=== PATIENT | female | born 1995 | race Caucasian/White ===

== ENCOUNTER 2020-03-02 08:42 | Outpatient (REF) | payer OTHER, SELFPAY ==
[2020-03-02 12:20] LABS: Glucose Fasting 70 mg/dL (60-99)
[2020-03-02 12:26] LABS: Iron 51 mcg/dL (30-160); Percent Iron Saturation 14 % (15-50); Total Iron Binding Capacity 360 mcg/dL (228-428); Unsaturated Iron Binding 309 ug/dL
[2020-03-02 13:23] LABS: Glucose 1 Hour 131 mg/dL
[2020-03-02 16:07] LABS: CT PCR NOT DETECTED (Not Detect.); NG PCR NOT DETECTED (Not Detect.)
[2020-03-03 09:31] LABS: Rubella IgG Antibody 2.34 index
[2020-03-03 13:21] LABS: Varicella IgG Antibody <135.00 index
[2020-03-04 12:26] LABS: HIV RNA PCR Qn Copies <20 NOT DETECTED copies/mL (NOT DETECTED); HIV RNA PCR Qn Log Copies <1.30 NOT DETECTED (NOT DETECTED)
[2020-03-05 08:49] LABS: HBsAGNum1 0.11 S/CO (0.00-0.99); Hepatitis B Surface Antigen Negative (Negative)
[2020-03-05 09:44] LABS: ~HepC Num1 0.07 S/CO (0.00-0.79); ~Hepatitis C Antibody Nonreactive (Nonreactive)
[2020-03-07 05:02] LABS: Syphilis Screen Nonreactive (Nonreactive)
== END 2020-03-02 08:43 | disposition home or self-care (01) ==
LOC: HO.LAB 08:42
PROVIDERS: PCP Internal Medicine; Visit Provider Obstetrics & Gynecology
DX: O99.012 Anemia complicating pregnancy, second trimester (principal); D64.9 Anemia, unspecified; O99.892 Other specified diseases and conditions complicating childbirth; N89.8 Other specified noninflammatory disorders of vagina; O34.219 Maternal care for unspecified type scar from previous cesarean delivery; O99.212 Obesity complicating pregnancy, second trimester; E66.9 Obesity, unspecified; O09.292 Supervision of pregnancy with other poor reproductive or obstetric history, second trimester; Z3A.14 14 weeks gestation of pregnancy
CPT/HCPCS: 82951; 83540; 86762; 86780; 86787; 86803; 86850; 86900; 86901; 87086; 87340; 87491; 87536; 87591

== ENCOUNTER → 2020-04-03 16:00 | Outpatient (BNVA) | payer OTHER, SELFPAY | PROVIDERS: PCP Internal Medicine; Visit Provider Advanced Practice Midwife | DX: Z76.89 Persons encountering health services in other specified circumstances (principal) ==

== ENCOUNTER 2020-04-06 12:22 | Outpatient (REF) | payer OTHER, SELFPAY ==
--- NOTE | 2020-04-06 12:23 | US_ITS ---
EXAMINATION: US OBSTETRICAL CLINICAL INFORMATION: 24-year-old at 18.2 weeks of gestation Suspected anomaly COMPARISON: 02/15/2020 TECHNIQUE: Real-time transabdominal ultrasound was performed using C1-5 megahertz transducer. FINDINGS: A single, active, fetus is seen in vertex presentation. The placenta is posterior without previa, and the amniotic fluid volume is wnl. MEASUREMENTS: 1. Biparietal Diameter: 4.4 cm; 19 point wks 2. Occipital Frontal Diameter: 6.1 cm 3. Head Circumference: 16.8 cm; 19.4 wks 4. Abdominal Circumference: 15.3 cm; 20.4 wks 5. Femur Length: 2.8 cm; 18.4 wks 6. Humerus Length: 2.8 cm; 19.1 wks 7. Tibia Length: 2.4 cm; 18.5 wks 8. Ulna Length: 2. cm; 18.2 wks 9. Lateral ventricle: 0.8 cm 10. Cerebellum: 1.95 cm; 20.0 wks 11. Cisterna Magna: 0.39 cm 12. Nuchal Fold: 10.5 mm 13. Heart Rate: 135 beats per minute Rt ovary: normal Lt ovary: normal Cervical length 4.4 cm on T/A. GESTATIONAL AGE: 1. Established GA: 18.2 wks 2. GA from [facility]: 19.4 wks ESTIMATED DATE OF DELIVERY: 1. Established ANTONIA: 09/05/2020 2. ANTONIA from [facility]: 08/27/2020 ANATOMY: The visualized anatomy includes but not limited to: 1. Cranium: Normal 2. Intracranial anatomy: cavum septum pellucidi, lateral ventricles, choroid plexus, cerebellum, posterior fossa, third and fourth ventricles. 3. Cystic hygroma is noted. Nuchal fold measured approximately 10.55 mm. There are no septations. However the integument edema extends down to the thoracic and abdominal area. Bilateral pleural effusion is noted. No mass in the thoracic cavity. 4. face: orbits, lip/palate, profile, nasal bone 5. Heart: four-chamber view of the heart, ventricular septum, foramen ovale, pulmonary vein, left and right outflow tracts, three-vessel view, 3 vessel trachea view, aortic and ductal arches, situs.. There is no evidence of a pericardial effusion. 6. Diaphragm: Normal: Bilateral pleural effusion 7. Abdominal wall: Normal umbilical cord insertion. No ascites 8. Cord Insertion: Normal 9. Spine: Cervical, thoracic, lumbar, sacral. 10. Stomach: Normal size and shape 11. Right Kidney: Normal 12. Left Kidney: Normal 13. 3 vessel cord: Normal 14. Upper extremity: Open hands, fifth digit. 15. Lower extremity: Tibia, fibula, bilateral feet. 16. Bladder: Normal 17. Genitalia: Female, patient aware US/US OB /maternal detail IMPRESSION: 1. Single, living, intrauterine with appropriate biometry. 2. Lymphangiectasia : Diffuse skin swelling involving nuchal area, neck, extending to thoracic wall. Bilateral pleural effusion without ascites. No pericardial effusion. Normal cardiac anatomy. 3. AFV: wnl DISCUSSION: I reviewed today's ultrasound findings. The prognosis for fetus with lymphangiectasia is highly variable. She had low-risk N IPT. I discussed the fact that the prognosis can vary depending on the etiology. Aneuploidy and other than trisomies as well as rare genetic syndrome can be associated with lymphangiectasia. She will be referred to the [facility] for MFM/genetic consultation, amniocentesis as well as echo. I also informed her that all options retroplacental approximately 24 weeks of gestation. She was informed that the baseline incidence of congenital abnormalities is approximately 3-5%. Not all these conditions are diagnosable in utero. RECOMMENDATIONS: 1. No further follow-up is been scheduled. Thank you for allowing me to participate in her care. Visiting time 40 minutes. Majority of this visit was spent reviewing and discussing her care.
== END 2020-04-06 12:23 | disposition home or self-care (01) ==
LOC: HO.US 12:22
PROVIDERS: Visit Provider Obstetrics & Gynecology
DX: O35.9XX0 Maternal care for (suspected) fetal abnormality and damage, unspecified, not applicable or unspecified (principal); R93.89 Abnormal findings on diagnostic imaging of other specified body structures; Z3A.26 26 weeks gestation of pregnancy
CPT/HCPCS: 76811; 99212

== ENCOUNTER → 2020-04-30 11:17 | Outpatient (BNVA) | payer OTHER, SELFPAY | PROVIDERS: PCP Internal Medicine; Visit Provider Advanced Practice Midwife | DX: Z76.89 Persons encountering health services in other specified circumstances (principal) ==

== ENCOUNTER → 2020-05-28 15:26 | Outpatient (BNVA) | payer OTHER, SELFPAY | PROVIDERS: PCP Internal Medicine; Visit Provider Obstetrics & Gynecology | DX: Z39.2 Encounter for routine postpartum follow-up (principal) | CPT/HCPCS: 99212 ==

== ENCOUNTER 2020-10-15 23:14 | Emergency (ER) | payer OTHER, SELFPAY ==
[2020-10-15 23:24] VITALS: BP 105/65; PULSE 71; RESP 18; TEMP 36.8; O2SAT 100; BMI 32.3
--- NOTE | 2020-10-16 00:17 | PC.NURSE ---
patient states that she is stressed out lately and believe she is suffering from anxiety. Patient states that she has some chest pain which resolved but has left sided numbness
[2020-10-16] MEDS: LORazepam 0.5 MG TABLET PO (00:27)
--- NOTE | 2020-10-16 00:29 | ED.GENADULT ---
HPI - General Adult General Chief complaint: General Medical Stated complaint: Facial numbness Time Seen by Provider: 10/16/20 00:03 Source: patient Mode of arrival: ambulatory Limitations: no limitations History of Present Illness HPI narrative: Patient history of anxiety been feeling anxiety stressed out lately some noticed sharp pain in the chest with facial numbness which is gone at this time no chest pain no shortness of breath no palpitation. No prior history of any chest pain or shortness of breath no murmur Related Data Home Medications Medication Instructions Recorded Confirmed prenat.vits,jossy,[id number]-[id number] 1 tab PO DAILY 04/30/20 Previous Rx's Medication Instructions Recorded docusate sodium 100 mg capsule 100 mg PO BID PRN #60 cap 03/02/20 ferrous sulfate 325 mg (65 mg 325 mg PO DAILY #90 tab 03/02/20 iron) tablet lorazepam [Ativan] 1 mg PO BEDTIME PRN #14 tab 10/16/20 Allergies Allergy/AdvReac Type Severity Reaction Status Date / Time No Known Allergies Allergy Verified 05/28/20 15:33 Review of Systems Review of Systems: Constitutional : No Weight loss, No Fever, No Chills ENT/Mouth : No sore throat, No Rhinorrhea Eyes: No Eye Pain, No Swelling Cardiovascular : No Chest Pain, no palpitations Respiratory : No Cough, No Sputum, no shortness of breath Gastrointestinal : no Nausea, No Vomiting, No Diarrhea, No abdominal Pain, no black stools Genitourinary : No Dysuria, No Urinary Frequency Musculoskeletal : No joint pain, No Myalgias, No Joint Swelling Skin : No Skin Lesions, No rash Neuro : No Weakness, No Numbness, No Dizziness, No Headache Psych :+ Anxiety/Panic, No Depression Heme/Lymph: No Bruising, No Lymphadenopathy Endocrine : No Polyuria, No Polydipsia All other systems reviewed and are negative PMF Past Medical History Medical History Anemia affecting History of gestational diabetes Multigravida in second trimester Surgical History History of delivery affecting Family History Family History Maternal Grandmother Breast cancer Social History Social History Alcohol intake: never Smoking Status: Never smoker Use of substances other than those prescribed or required for medical reasons: No Advance Directives: No Advance Directives Information Provided: No Patient : No Sexual orientation: Straight/Heterosexual Gender identity: female Physical Exam Vital Signs: Vital Signs: Last Vital Signs Temp 98.3 F 10/15/20 23:24 Pulse 71 10/15/20 23:24 Resp 18 10/15/20 23:24 BP 105/65 10/15/20 23:24 Pulse Ox 100 10/15/20 23:24 Body Mass Index 32.3 Appearance: Alert. Oriented X3. No acute distress. Anxious Eyes: PERRLA, No Nystagmus ENT: Pharynx normal. Oral Mucosa moist Neck: Normal inspection. Neck supple. CVS: Normal heart rate and rhythm. Pulses normal. No murmur or gallop Respiratory: No respiratory distress. Equal air entry bilateral, no wheezing/rales/rhonchi Abdomen: Soft and nontender. Bowel sounds are present, no mass palpable, no CVA tenderness Skin: Skin warm and dry. Normal skin color. Normal skin turgor. Extremities: No lower extremity edema. No calf tenderness Neuro: Oriented X 3. No motor deficit. No sensory deficit.No cerebellar signs , cranial nerves II-XII intact Medical Decision Making MDM Narrative Medical decision making narrative: Patient with anxiety vital stable low risk for any coronary artery disease will discharge patient home on Ativan Discharge Plan Discharge Clinical Impression: Anxiety Patient Disposition: Home, Self-Care Instructions: Anxiety (ED) Additional Instructions: Take medication for severe anxiety as advised. Follow with PCP Prescriptions: New lorazepam [Ativan] 1 mg tablet 1 mg PO BEDTIME PRN (Reason: anxiety) Qty: 14 RF: 0 No Action ferrous sulfate 325 mg (65 mg iron) tablet 325 mg PO DAILY Qty: 90 RF: 3 docusate sodium [Colace] 100 mg capsule 100 mg PO BID PRN (Reason: constipation) Qty: 60 RF: 11 prenat.vits,jossy,[id number] Tablet 1 tab PO DAILY RF: 0
== END 2020-10-16 01:00 | disposition home or self-care (01) ==
PROVIDERS: Emergency Provider Internal Medicine; PCP Internal Medicine
DX: F41.9 Anxiety disorder, unspecified (principal); Z79.899 Other long term (current) drug therapy; Z72.89 Other problems related to lifestyle; Z73.3 Stress, not elsewhere classified
CPT/HCPCS: 99283; 99284

== ENCOUNTER 2020-11-19 09:51 | Outpatient (REF) | payer OTHER, SELFPAY ==
[2020-11-19 15:00] LABS: HCG Quantitative 18306 mIU/mL
== END 2020-11-19 09:52 | disposition home or self-care (01) ==
LOC: HO.LAB 09:51
PROVIDERS: PCP Internal Medicine; Visit Provider Advanced Practice Midwife
DX: O09.299 Supervision of pregnancy with other poor reproductive or obstetric history, unspecified trimester (principal)
CPT/HCPCS: 36415; 81025; 84702; 99212

== ENCOUNTER 2020-11-23 09:20 | Outpatient (REF) | payer OTHER, SELFPAY ==
--- NOTE | ~2020-11-23 | US_ITS ---
EXAMINATION: OBSTETRICAL ULTRASOUND, FIRST TRIMESTER HISTORY: 21-year-old at approximately 6 weeks of gestation History of poor OB outcome LMP: 10/06/2020 COMPARISON: None TECHNIQUE: Real time transabdominal imaging with color and M-mode Doppler. FINDINGS: A single, live IUP CRL of 7.0 mm c/w 6.5wks is noted. Heart Rate: 127 beats per minute. Both maternal ovaries are seen and appear normal. GESTATIONAL AGE: 1. GA from [facility]: 6.6 wks 2. GA from [facility]: 6.5 wks ESTIMATED DATE OF DELIVERY: 1. ANTONIA from [facility]: 07/13/2021 2. ANTONIA from [facility]: 07/14/2021 US/US OB <= 14 weeks fetus IMPRESSION: 1. A single live IUP 2. Size equals dates 3. Normal ovaries Most recent was complicated by large cystic hygroma/lymphangiectasia diagnosed at the time of the survey. A follow up at approximately 12 weeks is recommended. Thank you very much for this referral. This note was generated with a voice recognition program. Please excuse any errors which may have been overlooked during my review of this note. Sometimes these errors may affect the content or meaning of a given sentence.
== END 2020-11-23 09:21 | disposition home or self-care (01) ==
LOC: HO.US 09:20
PROVIDERS: Visit Provider Advanced Practice Midwife
DX: O09.299 Supervision of pregnancy with other poor reproductive or obstetric history, unspecified trimester (principal); Z3A.01 Less than 8 weeks gestation of pregnancy
CPT/HCPCS: 76801

== ENCOUNTER 2020-12-03 09:58 | Outpatient (REF) | payer OTHER, SELFPAY ==
[2020-12-03 13:00] LABS: Hemoglobin 9.5 g/dl (12.0-16.0); Mean Corpuscular HGB Conc 31.7 g/dl (31.0-35.0); Mean Corpuscular Hemoglobin 25.5 pg (27.0-33.0); Mean Corpuscular Volume 80.4 fL (80-98); Mean Platelet Volume 11.8 fL (9.4-12.3); Platelet Count 255 X10*3/uL (160-400); Red Blood Count 3.73 X10*6/uL (4.20-5.50); Red Cell Distribution Width 15.6 % (11.0-16.0); White Blood Count 9.2 X10*3/uL (4.8-10.8)
[2020-12-03 13:21] LABS: Glucose 1 Hour PP 50gm Dose 145 mg/dL (60-140)
[2020-12-03 15:00] LABS: Syphilis Screen Nonreactive (Nonreactive)
[2020-12-03 15:13] LABS: Amphetamine Screen Urine Not Detected (Not Detect); Barbiturates, Urine Not Detected (Not Detect); Benzodiazepines Screen Urine Not Detected (Not Detect); Cannabinoid Screen Urine Not Detected (Not Detect); Cocaine Screen Urine Not Detected (Not Detect); Opiate Screen Urine Not Detected (Not Detect); Phencyclidine Screen Urine Not Detected (Not Detect)
[2020-12-04 04:38] LABS: HIV AB/AG Nonreactive (Nonreactive)
[2020-12-04 04:47] LABS: HBsAGNum1 0.21 S/CO (0.00-0.99); Hepatitis B Surface Antigen Negative (Negative); ~HepC Num1 0.05 S/CO (0.00-0.79); ~Hepatitis C Antibody Nonreactive (Nonreactive)
[2020-12-05 17:46] LABS: Rubella IgG Antibody 2.22 Index
== END 2020-12-03 09:59 | disposition home or self-care (01) ==
LOC: HO.LAB 09:58
PROVIDERS: PCP Internal Medicine; Visit Provider Advanced Practice Midwife
DX: R73.09 Other abnormal glucose (principal); Z11.3 Encounter for screening for infections with a predominantly sexual mode of transmission; Z86.32 Personal history of gestational diabetes
CPT/HCPCS: 80307; 85027; 86762; 86780; 86787; 86803; 86850; 86900; 86901; 87086; 87340; 87389

== ENCOUNTER 2021-01-01 15:02 | Outpatient (REF) | payer OTHER, SELFPAY ==
[2021-01-02 10:15] LABS: CT PCR NOT DETECTED (Not Detect.); NG PCR NOT DETECTED (Not Detect.)
[2021-01-02 11:16] LABS: BV Int Neg Control Negative (Negative); BV Int Pos Control Positive (Positive)
== END 2021-01-01 15:03 | disposition home or self-care (01) ==
LOC: HO.LAB 15:02
PROVIDERS: PCP Internal Medicine; Visit Provider Advanced Practice Midwife
DX: O09.291 Supervision of pregnancy with other poor reproductive or obstetric history, first trimester (principal); O34.211 Maternal care for low transverse scar from previous cesarean delivery; Z86.32 Personal history of gestational diabetes; Z20.2 Contact with and (suspected) exposure to infections with a predominantly sexual mode of transmission
CPT/HCPCS: 87480; 87491; 87510; 87591; 87660; 88142; 99212

== ENCOUNTER 2021-01-04 12:38 | Outpatient (REF) | payer OTHER, SELFPAY ==
--- NOTE | ~2021-01-04 | US_ITS ---
EXAMINATION: OBSTETRICAL ULTRASOUND, FIRST TRIMESTER HISTORY: 25-year-old at 12.6 weeks of gestation History of poor obstetrical outcome NT screening COMPARISON: November 23, 2020 TECHNIQUE: Real time transabdominal imaging with color and M-mode Doppler. FINDINGS: A single, live IUP CRL of 72.1 mm c/w 13.3wks is noted. Heart Rate: 156 beats per minute. Normal yolk sac seen. NT was 1.3.mm. NB Present The embryo appears sonographically wnl for this GA. Both maternal ovaries are seen and appear normal. GESTATIONAL AGE: 1. Established GA: 12.6 wks 2. GA from [facility]: 13.3 wks ESTIMATED DATE OF DELIVERY: 1. Established ANTONIA: 07/13/2021 2. ANTONIA from [facility]: 07/09/2021 US/US OB 1T nuc measure IMPRESSION: 1. A single live IUP 2. Size equals dates 3. NT of 1.3 mm 4. No evidence of cystic hygroma MFM Consultation: I reviewed the ultrasound findings along with significance of NT measurement. The NT of less than 3mm is generally reassuring. However, the sensitivity for T21 detection is only 60%. I reviewed the availability of serum aneuploidy screening which includes cell-free DNA and placental protein based tests. I discussed the sensitivity, false-positive rate, and other limitations associated with each test. I also reviewed the availability of invasive diagnostic tests that are associated small but definite risk of miscarriage. We also reviewed the differences between screening tests and diagnostic tests. After our discussion, she opted for the First trimester screening that is based on cell-free DNA or non-invasive testing (NIPT). In March 2020, she had a second trimester demise. 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 The cytogenetics report is not available for my inspection today. The survey in that showed diffuse lymphangiectasia. N IPT was low risk. I informed the patient that the likelihood of recurrence is low given that the fetus was not affected by aneuploidy. However it is possible that one of them might be a carrier of a balanced translocation. The instance of the balance translocation in the general population is approximately 1%. Although parental karyotype could be informative, it may not provide clinically useful information for the management of this . A follow up at 18 weeks for survey has been scheduled. The result of the N IPT will be available in approximately one week. Thank you very much for this referral. Total time 30 minutes. The time spent was devoted to counseling the patient about the disease and diagnosis, coordinating care including reviewing her records, pertinent lab data and studies, as well as discussing diagnostic evaluation and workup, plan therapeutic interventions and future disposition of care. This includes any additional research needed to obtain further information in formulating the plan of care of this patient. This note was generated with a voice recognition program. Please excuse any errors which may have been overlooked during my review of this note. Sometimes these errors may affect the content or meaning of a given sentence.
== END 2021-01-04 12:39 | disposition home or self-care (01) ==
LOC: HO.US 12:38
PROVIDERS: PCP Internal Medicine; Visit Provider Advanced Practice Midwife
DX: O09.291 Supervision of pregnancy with other poor reproductive or obstetric history, first trimester (principal); Z3A.12 12 weeks gestation of pregnancy
CPT/HCPCS: 76813

== ENCOUNTER 2021-01-21 10:38 | Outpatient (REF) | payer OTHER, SELFPAY | END 2021-01-21 10:39 | disposition home or self-care (01) | LOC: HO.LAB 10:38 | PROVIDERS: Visit Provider Advanced Practice Midwife | DX: O09.292 Supervision of pregnancy with other poor reproductive or obstetric history, second trimester (principal); O26.892 Other specified pregnancy related conditions, second trimester; R30.0 Dysuria; R73.09 Other abnormal glucose; Z3A.15 15 weeks gestation of pregnancy; Z86.32 Personal history of gestational diabetes | CPT/HCPCS: 81003; 99212 ==

== ENCOUNTER 2021-01-25 10:36 | Outpatient (REF) | payer OTHER, SELFPAY ==
--- NOTE | ~2021-01-25 | US_ITS ---
EXAMINATION: OBSTETRICAL ULTRASOUND, Follow up HISTORY: 25-year-old at the 15.5 weeks of gestation History of poor obstetrical outcome COMPARISON: 01/04/2021 TECHNIQUE: Real time transabdominal imaging with color and M-mode Doppler. PRESENTATION: Breech PLACENTA LOCATION: Anterior without previa AMNIOTIC FLUID: Normal MEASUREMENTS: 1. Biparietal Diameter: 3.7 cm; 17.3 wks 2. Head Circumference: 13.3 cm; 17.0 wks 3. Abdominal Circumference: 10.5 cm; 16.3 wks 4. Femur Length: 2.0 cm; 16.1 wks 5. Heart Rate: 146 beats per minute WEIGHT: Estimated weight is 153 grams (0 lbs 5 oz) -- 73 %. survey was not attempted due to early gestational age. No abnormalities were seen in visualized anatomy. GESTATIONAL AGE: 1. Established GA: 15.6 wks 2. GA from [facility]: 16.6 wks ESTIMATED DATE OF DELIVERY: 1. Established ANTONIA: 07/13/2021 2. ANTONIA from [facility]: 07/06/2021 US/ OB /maternal detail IMPRESSION: 1. A single fetus with appropriate biometry is noted. 2. Due to early GA, survey was not attempted. 3. Normal amniotic fluid volume I reviewed today's findings and gave her reassurance. She had a demise diagnosed at approximately 18 weeks of gestation. The cause is unknown. Given today's findings, I reassured her that the likelihood of recurrence is no greater than that of the general population. RECOMMENDATIONS: 1. Follow-up in 4 weeks for survey (scheduled). Thank you very much for this referral. Total time 20 minutes. The time spent was devoted to counseling the patient about the disease and diagnosis, coordinating care including reviewing her records, pertinent lab data and studies, as well as discussing diagnostic evaluation and workup, plan therapeutic interventions and future disposition of care. This includes any additional research needed to obtain further information in formulating the plan of care of this patient. This note was generated with a voice recognition program. Please excuse any errors which may have been overlooked during my review of this note. Sometimes these errors may affect the content or meaning of a given sentence.
== END 2021-01-25 10:37 | disposition home or self-care (01) ==
LOC: HO.US 10:36
PROVIDERS: PCP Internal Medicine; Visit Provider Advanced Practice Midwife
DX: O09.299 Supervision of pregnancy with other poor reproductive or obstetric history, unspecified trimester (principal); O99.810 Abnormal glucose complicating pregnancy
CPT/HCPCS: 76811

== ENCOUNTER 2021-02-06 07:52 | Emergency (ER) | payer OTHER, SELFPAY ==
[2021-02-06 08:15] VITALS: BP 119/72; PULSE 95; RESP 16; O2SAT 99; BMI 32.3
--- NOTE | 2021-02-06 08:28 | ED_ITS ---
HPI - General Adult General Stated complaint: wants ultrasound Time Seen by Provider: 02/06/21 08:19 Source: patient Mode of arrival: ambulatory Limitations: no limitations History of Present Illness HPI narrative: LMP in September here no OB complaints she just came to the department to hear her baby's heart beat. She plans to see [facility] for her OBGYN care and is on vitamins, she has no actual complaints other than wanting to hear the heart beat MD complaint: wants to hear her baby's heart beat Onset (ago): hour(s) Severity: mild Relieving factors: none Exacerbating factors: none Associated symptoms: denies other symptoms Treatments prior to arrival: none Related Data Previous Rx's Medication Instructions Recorded vitamin with calcium 1 tab PO DAILY #90 tab 11/19/20 no.72-iron 27 mg-folic acid 1 mg tablet ( Vitamins Plus Low Iron) ferrous sulfate 324 mg (65 mg 324 mg PO TID #90 tab 12/03/20 iron) tablet,delayed release metronidazole 500 mg tablet 500 mg PO Q12H #14 tab 01/02/21 (Flagyl) Allergies Allergy/AdvReac Type Severity Reaction Status Date / Time No Known Allergies Allergy Verified 01/21/21 10:55 Review of Systems Review of Systems: Constitutional : No Fever, No Chills ENT/Mouth : No sore throat, No Rhinorrhea Eyes: No Eye Pain, No Swelling, No Redness Cardiovascular : No Chest Pain, No SOB Respiratory : No Cough, No Sputum, No Wheezing Gastrointestinal : No Nausea, No Vomiting, No abdominal Pain Genitourinary : No Dysuria, No Urinary Frequency, No Hematuria, no bleeding Musculoskeletal : No joint pain, No Myalgias, No Joint Swelling PMFSH Past Medical History Attestation statement: The following information was validated with the patient. Medical History Anemia affecting Anxiety History of gestational diabetes Multigravida in second trimester Surgical History History of delivery affecting Family History Family History Maternal Grandmother No problems noted. Mother Diabetes Social History Social History Household Members: Significant Other and Children Housing: Apartment Are you a primary manager medicare to a significant other at home: No Do you presently have visiting nurse or other home services: No Alcohol intake: former Patient Tobacco Use Status: Never used Tobacco Second Hand Smoke Exposure: No Special sonny needs: No Agree to transfusion: Yes Advance Directives: No Advance Directives Information Provided: No Patient : Yes Sexual orientation: Straight/Heterosexual Gender identity: Female Physical Exam Vital Signs: Vital Signs: Last Vital Signs Pulse 95 02/06/21 08:15 Resp 16 02/06/21 08:15 BP 119/72 02/06/21 08:15 Pulse Ox 99 02/06/21 08:15 Body Mass Index 32.3 Appearance: Alert. Oriented X3. No acute distress. Eyes: Pupils equal, round and reactive to light. ENT: Pharynx normal. Neck: Normal inspection. Neck supple. CVS: Normal heart rate and rhythm. Pulses normal. Respiratory: No respiratory distress. Breath sounds normal. Abdomen: Soft and non-tender. Skin: Skin warm and dry. Normal skin color. Normal skin turgor. Extremities: No lower extremity edema. Neuro: Oriented X 3. No motor deficit. No sensory deficit. Procedures Procedure Narrative Procedure Narrative: FHT 145 bedside limited trans abd + single IUP movement and activity noted, no free fluid Discharge Plan Discharge Clinical Impression: Patient Disposition: Home, Self-Care Instructions: (ED) Additional Instructions: return to ED for any worsening symptoms or concerns PLEASE CALL YOUR OBGYN TODAY TAKE VITAMINS Prescriptions: No Action ferrous sulfate 324 mg (65 mg iron) tablet,delayed release (DR/EC) 324 mg PO TID Qty: 90 RF: 3 metronidazole [Flagyl] 500 mg tablet 500 mg PO Q12H Qty: 14 RF: 0 Vitamin Plus Low Iron 27 mg iron- 1 mg tablet 1 tab PO DAILY Qty: 90 RF: 3 Referrals: Avel Ghosh MD [Physician] - 2 days
== END 2021-02-06 08:36 | disposition home or self-care (01) ==
PROVIDERS: Emergency Provider Emergency Medicine; PCP Internal Medicine
DX: O26.91 Pregnancy related conditions, unspecified, first trimester (principal); Z3A.00 Weeks of gestation of pregnancy not specified
CPT/HCPCS: 99282; 99283

== ENCOUNTER 2021-02-22 09:30 | Outpatient (REF) | payer OTHER, SELFPAY ==
--- NOTE | ~2021-02-22 | US_ITS ---
EXAMINATION: US OBSTETRICAL CLINICAL INFORMATION: A 25-year-old at 19.6 weeks of gestation Suspected anomaly History of poor OB outcome COMPARISON: 01/25/2021 TECHNIQUE: Real-time transabdominal ultrasound was performed using C1-5 megahertz transducer. FINDINGS: A single, active, fetus is seen in transverse presentation. The placenta is anterior without previa, and the amniotic fluid volume is wnl. MEASUREMENTS: 1. Biparietal Diameter: 4.9 cm; 20.6 wks 2. Occipital Frontal Diameter: 6.3 cm 3. Head Circumference: 18.4 cm; 20.6 wks 4. Abdominal Circumference: 16.4 cm; 21.4 wks 5. Femur Length: 3.6 cm; 21.3 wks 6. Humerus Length: 3.6 cm; 22.4 wks 7. Tibia Length: 3.14 cm; 21.5 wks 8. Ulna Length: 2.9 cm; 20.6 wks 9. Lateral ventricle: 0.7 cm 10. Cerebellum: 2.1 cm; 21.1 wks 11. Cisterna Magna: 0.55 cm 12. Nuchal Fold: 5.28 mm 13. Heart Rate: 160 beats per minute Rt ovary: Unable to visualize Lt ovary: Unable to visualize Cervical length 4.9 cm on T/A. GESTATIONAL AGE: 1. Established GA: 19.6 wks 2[address] GA from [facility]: 21.2 wks ESTIMATED DATE OF DELIVERY: 1. Established ANTONIA: 07/13/[address]21 [address] ANTONIA [address] [facility]: 07/03/2021 ANATOMY: The visualized anatomy includes but not limited to: 1. Cranium: Normal 2. Intracranial anatomy: cavum septum pellucidi, lateral ventricles, choroid plexus, cerebellum, posterior fossa, third and fourth ventricles. 3. face: orbits, lip/palate, profile, nasal bone 4. Heart: four-chamber view of the heart, ventricular septum, foramen ovale, pulmonary vein, left and right outflow tracts, three-vessel view, 3 vessel trachea view, aortic and ductal arches, situs.. 5. Diaphragm: Normal 6. Abdominal wall: Normal 7. Cord Insertion: Normal 8. Spine: Cervical, thoracic, lumbar, sacral. 9. Stomach: Normal size and shape 10. Right Kidney: Normal 11. Left Kidney: Normal 12. 3 vessel cord: Normal 13. Upper extremity: Open hands, fifth digit. 14. Lower extremity: Tibia, fibula, bilateral feet. 15. Bladder: Normal 16. Genitalia: Male, patient aware US/US OB /maternal detail IMPRESSION: 1. Single, living, intrauterine with appropriate biometry. 2. Normal survey DISCUSSION: I reviewed today's ultrasound findings. We discussed the limitations of ultrasound in diagnosing aneuploidy and other congenital abnormalities. I reviewed the differences between screening test and diagnostic test. Amniocentesis was discussed and declined. She was informed that the baseline incidence of congenital abnormalities is approximately 3-5%. Not all these conditions are diagnosable in utero. RECOMMENDATIONS: 1. Follow-up when necessary Thank you for allowing me to participate in her care. Total time 30 minutes. The time spent was devoted to counseling the patient about the disease and diagnosis, coordinating care including reviewing her records, pertinent lab data and studies, as well as discussing diagnostic evaluation and workup, plan therapeutic interventions and future disposition of care. This includes any additional research needed to obtain further information in formulating the plan of care of this patient. This note was generated with a voice recognition program. Please excuse any errors which may have been overlooked during my review of this note. Sometimes these errors may affect the content or meaning of a given sentence.
== END 2021-02-22 09:31 | disposition home or self-care (01) ==
LOC: HO.US 09:30
PROVIDERS: PCP Internal Medicine; Visit Provider Advanced Practice Midwife
DX: Z36.3 Encounter for antenatal screening for malformations (principal); O09.299 Supervision of pregnancy with other poor reproductive or obstetric history, unspecified trimester; Z3A.00 Weeks of gestation of pregnancy not specified
CPT/HCPCS: 76811

== ENCOUNTER → 2021-05-03 11:48 | Outpatient (BNVA) | payer OTHER, SELFPAY | PROVIDERS: PCP Internal Medicine; Visit Provider Advanced Practice Midwife | DX: O36.63X0 Maternal care for excessive fetal growth, third trimester, not applicable or unspecified (principal); Z3A.29 29 weeks gestation of pregnancy | CPT/HCPCS: 99212 ==

== ENCOUNTER 2021-05-10 09:34 | Outpatient (REF) | payer OTHER, SELFPAY ==
--- NOTE | ~2021-05-10 | US_ITS ---
EXAMINATION: OBSTETRICAL ULTRASOUND, Follow up HISTORY: 25-year-old at the 30.6 weeks of gestation Size date discrepancy History of poor OB outcome COMPARISON: 02/22/2021 TECHNIQUE: Real time transabdominal imaging with color and M-mode Doppler. PRESENTATION: Breech PLACENTA LOCATION: Anterior without previa AMNIOTIC FLUID: AMY 12.1 MEASUREMENTS: 1. Biparietal Diameter: 8.1 cm; 32.5 wks 2. Head Circumference: 30.6 cm; 34.1 wks 3. Abdominal Circumference: 29.8 cm; 23.6 wks 4. Femur Length: 5.8 cm; 30.3 wks 5. Heart Rate: 1 4 3 beats per minute WEIGHT: EFW: 2109 grams (4 lbs 10 oz) -- 96 %. BIOPHYSICAL PROFILE: Motion: 2 Tone: 2 Breathin Amniotic Fluid: 2 Total score: 8/8 GESTATIONAL AGE: 1. Established GA: 30.6 wks 2. GA from [facility]: 33.0 wks ESTIMATED DATE OF DELIVERY: 1. Established ANTONIA: 07/13/2021 2. ANTONIA from [facility]: 06/28/2021 US/ OB follow up IMPRESSION: 1. A single active fetus is seen in breech presentation 2. Size greater than dates, EFW corresponds to 96th percentile 3. Reassuring biophysical profile She has gestational diabetes and is currently monitoring her fingerstick glucose values. She reports that her glycemic control is borderline. She will most likely need either oral entirely hypoglycemics or insulin. She will continue her OB care at the [facility]. I informed the patient that the EFW corresponds to the 96th percentile. However this does not the predict macrosomia at term. Unless the EFW at term is 4500 g or more, an elective delivery to prevent permanent Erb's palsy is not the recommended. Thank you very much for this referral. Total time 30 minutes. The time spent was devoted to counseling the patient about the disease and diagnosis, coordinating care including reviewing her records, pertinent lab data and studies, as well as discussing diagnostic evaluation and workup, plan therapeutic interventions and future disposition of care. This includes any additional research needed to obtain further information in formulating the plan of care of this patient. This note was generated with a voice recognition program. Please excuse any errors which may have been overlooked during my review of this note. Sometimes these errors may affect the content or meaning of a given sentence.
== END 2021-05-10 09:35 | disposition home or self-care (01) ==
LOC: HO.US 09:34
PROVIDERS: PCP Internal Medicine; Visit Provider Advanced Practice Midwife
DX: O36.63X0 Maternal care for excessive fetal growth, third trimester, not applicable or unspecified (principal); Z3A.30 30 weeks gestation of pregnancy
CPT/HCPCS: 76816

== ENCOUNTER 2021-05-21 09:18 | Outpatient (REF) | payer OTHER, SELFPAY ==
--- NOTE | ~2021-05-21 | US_ITS ---
EXAMINATION: US OBSTETRICAL (BIOPHYSICAL PROFILE) CLINICAL INFORMATION: Gestational diabetes. . COMPARISON: Obstetrical ultrasound 05/10/2021 TECHNIQUE: Ultrasound of the pelvis is performed. Biophysical profile is performed over 30 minutes with assessment of breathing, gross body movement, tone, and qualitative amniotic fluid volume. Each matrix is scored 0 or 2, depending if the metric is present. Maximum total score possible is 8. Examination is not intended to assess for anomalies. FINDINGS: POSITION: Cephalic presentation. PLACENTA: Anterior. Grade 2. AMNIOTIC FLUID INDEX: 16.97 cm largest pocket measures 9.53 cm CARDIAC ACTIVITY: 125 beats per minute BIOPHYSICAL PROFILE: Motion: 2 Tone: 2 Breathin Amniotic Fluid: 2 Total score: 6 US/US OB biophysical profile IMPRESSION: 1. Single intrauterine gestation in cephalic position with anterior placenta. 2. Total biophysical score is 6 (scale 0-8). 3. Amniotic fluid index 16.97 cm. 4. cardiac activity 125 beats per minute.
[2021-05-21 10:08] LABS: Hematocrit 29.8 % (37.0-47.0); Hemoglobin 9.3 g/dl (12.0-16.0); Mean Corpuscular HGB Conc 31.2 g/dl (31.0-35.0); Mean Corpuscular Hemoglobin 26.5 pg (27.0-33.0); Mean Corpuscular Volume 84.9 fL (80.0-98.0); Mean Platelet Volume 10.9 fL (9.4-12.3); Platelet Count 193 X10*3/uL (160-400); Red Blood Count 3.51 X10*6/uL (4.20-5.50); Red Cell Distribution Width 15.2 % (11.0-16.0); White Blood Count 9.6 X10*3/uL (4.8-10.8)
[2021-05-21 10:36] LABS: Glucose Fasting 109 mg/dL (60-99)
[2021-05-21 11:56] LABS: Glucose 1 Hour 232 mg/dL
[2021-05-21 12:41] LABS: Amphetamine Screen Urine Not Detected (Not Detect); Barbiturates, Urine Not Detected (Not Detect); Benzodiazepines Screen Urine Not Detected (Not Detect); Cannabinoid Screen Urine Not Detected (Not Detect); Cocaine Screen Urine Not Detected (Not Detect); Fentanyl, urine Not Detected (Not Detect); Opiate Screen Urine Not Detected (Not Detect); Phencyclidine Screen Urine Not Detected (Not Detect)
[2021-05-21 12:59] LABS: Glucose 2 Hour 197 mg/dL
[2021-05-21 13:31] LABS: Glucose 3 Hour 181 mg/dL
[2021-05-22 07:55] LABS: Syphilis Screen Nonreactive (Nonreactive)
== END 2021-05-21 09:19 | disposition home or self-care (01) ==
LOC: HO.LAB 09:18
PROVIDERS: Advanced Practice Midwife; PCP Internal Medicine; Visit Provider Advanced Practice Midwife
DX: O09.299 Supervision of pregnancy with other poor reproductive or obstetric history, unspecified trimester (principal); D18.1 Lymphangioma, any site; O09.33 Supervision of pregnancy with insufficient antenatal care, third trimester; O24.419 Gestational diabetes mellitus in pregnancy, unspecified control; O26.899 Other specified pregnancy related conditions, unspecified trimester; R30.0 Dysuria; O99.013 Anemia complicating pregnancy, third trimester; D64.9 Anemia, unspecified; O34.219 Maternal care for unspecified type scar from previous cesarean delivery; Z3A.32 32 weeks gestation of pregnancy
CPT/HCPCS: 36415; 59025; 76819; 80307; 82951; 85027; 86780; 87086; 99212

== ENCOUNTER 2021-05-23 14:26 | Outpatient (REF) | payer OTHER, SELFPAY ==
--- NOTE | ~2021-05-23 | US_ITS ---
EXAMINATION: US OBSTETRICAL (BIOPHYSICAL PROFILE) CLINICAL INFORMATION: Gestational diabetes. COMPARISON: Previous exam, most recent 05/21/2021. TECHNIQUE: Ultrasound of the pelvis was performed. Biophysical profile was performed over 30 minutes with assessment of breathing, gross body movement, tone, and qualitative amniotic fluid volume. Each matrix is scored 0 or 2, depending if the metric is present. Maximum total score possible is 8. Examination is not intended to assess for anomalies. FINDINGS: POSITION: Cephalic PLACENTA: Anterior, grade 2 AMNIOTIC FLUID INDEX: 18 cm CARDIAC ACTIVITY: 132 beats per minute BIOPHYSICAL PROFILE: Motion: 2 Tone: 2 Breathin Amniotic Fluid: 2 Total score: 8 US/US OB biophysical profile IMPRESSION: 1. Single, intrauterine gestation in cephalic position with anterior placenta. 2. Total biophysical score is 8 (scale 0-8). 3. Amniotic fluid index 18 cm. 4. cardiac activity 132 beats per minute.
== END 2021-05-23 14:27 | disposition home or self-care (01) ==
LOC: HO.US 14:26
PROVIDERS: Visit Provider Advanced Practice Midwife
DX: O24.419 Gestational diabetes mellitus in pregnancy, unspecified control (principal)
CPT/HCPCS: 76819

== ENCOUNTER → 2021-05-28 15:03 | Outpatient (BNVA) | payer OTHER, SELFPAY | PROVIDERS: PCP Internal Medicine; Visit Provider Obstetrics & Gynecology | DX: O24.410 Gestational diabetes mellitus in pregnancy, diet controlled (principal); Z3A.33 33 weeks gestation of pregnancy | CPT/HCPCS: 59025; 99212 ==

== ENCOUNTER 2021-05-31 14:17 | Outpatient (REF) | payer OTHER, SELFPAY ==
--- NOTE | ~2021-05-31 | US_ITS ---
EXAMINATION: OBSTETRICAL ULTRASOUND, Follow up HISTORY: 25-year-old at the 33.6 weeks of gestation GDM Size date discrepancy High BMI COMPARISON: 05/23/2021 TECHNIQUE: Real time transabdominal imaging with color and M-mode Doppler. PRESENTATION: Vertex PLACENTA LOCATION: Anterior without previa AMNIOTIC FLUID: AMY 16.4 cm MEASUREMENTS: 1. Biparietal Diameter: 8.8 cm; 35.3 wks 2. Head Circumference: 32.0 cm; 36.1 wks 3. Abdominal Circumference: 35.5 cm; 39.3 wks 4. Femur Length: 7.0 cm; 36.0 wks 5. Heart Rate: 134 beats per minute WEIGHT: EFW: 3295 grams (7 lbs 4 oz) -- 98 %. BIOPHYSICAL PROFILE: Motion: 2 Tone: 2 Breathin Amniotic Fluid: 2 Total score: 8/8 GESTATIONAL AGE: 1. Established GA: 33.6 wks 2. GA from AUA: 36.6 wks ESTIMATED DATE OF DELIVERY: 1. Established ANTONIA: 07/13/2021 2. ANTONIA from AUA: 06/22/2021 US/US OB follow up IMPRESSION: 1. A single active fetus is in vertex presentation 2. Size greater than dates, EFW corresponds to 98th percentile 3. Reassuring biophysical profile with normal AMY. According to patient, her fasting glucose values are still in the low 100s. She is only on diet modification. She has transferred her care to the [facility] and will be followed there for the management of her gestational diabetes and delivery. She had a delivery with her first due to failure to descend. The weight of the baby was approximately 7 1/2 pounds. I reviewed the limitations of estimated weight. However it this time, the EFW near term could very well approach 4500 grams. She is considering a trial of labor after section. Given the current EFW, a repeat the section may be advisable. Thank you very much for this referral. Total time 30 minutes. The time spent was devoted to counseling the patient about the disease and diagnosis, coordinating care including reviewing her records, pertinent lab data and studies, as well as discussing diagnostic evaluation and workup, plan therapeutic interventions and future disposition of care. This includes any additional research needed to obtain further information in formulating the plan of care of this patient. This note was generated with a voice recognition program. Please excuse any errors which may have been overlooked during my review of this note. Sometimes these errors may affect the content or meaning of a given sentence.
== END 2021-05-31 14:18 | disposition home or self-care (01) ==
LOC: HO.US 14:17
PROVIDERS: Visit Provider Obstetrics & Gynecology
DX: O24.419 Gestational diabetes mellitus in pregnancy, unspecified control (principal)
CPT/HCPCS: 76816

== ENCOUNTER → 2021-07-22 08:21 | Outpatient (BNVA) | payer OTHER, SELFPAY | PROVIDERS: PCP Internal Medicine; Visit Provider Obstetrics & Gynecology | DX: Z09 Encounter for follow-up examination after completed treatment for conditions other than malignant neoplasm (principal) | CPT/HCPCS: 99212 ==

== ENCOUNTER 2025-01-30 10:21 | Outpatient (AMB) | payer OTHER, SELFPAY ==
--- NOTE | 2025-01-30 10:33 | MHC.PC.OV ---
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 Accompanied by: Self / Same As Patient Allergies No Known Allergies Allergy (Verified 01/30/25 10:49) Medication List - Last Reconciled 01/30/25 by Fannie Olson PA-C etonogestrel (Nexplanon) subdermal Tobacco use date assessed: 01/30/25 Dental Screening Dental Screen Date: 01/30/25 Did you have a dental visit in the last 12 months?: No Did you have a dental problem in the last 6 months where you did not have access to dental care?: No HPI Establish Care- [place] patient from 2020 HPI Details The patient is a 29-year-old female presenting for a new patient appointment, annual physical examination and in addition for an evaluation of her Nexplanon implant. The patient has had the Nexplanon implant since July 07, 2021, following the of her second child. She wishes to have it removed earlier than the scheduled date of July 07, 2026, due to a desire to discontinue control, despite not planning to have more children. The patient reports a history of anemia, with a hemoglobin level of 9.3 g/dL noted in 2020. She experiences fatigue and weakness, often needing to carry snacks to prevent feeling faint. She does not currently take iron supplements due to gastrointestinal side effects. The patient has a family history of breast cancer, with her grandmother having from it and her mother currently undergoing treatment to prevent progression of fibroids to cancer. She is aware of the need for regular screenings due to this history. The patient reports menorrhagia, with heavy menstrual bleeding lasting up to two weeks and associated clotting. She attributes these symptoms to the Nexplanon implant and desires its removal. The patient has experienced episodes of dizziness, particularly when standing up quickly, which may be related to low blood pressure. Orthostatic hypotension was ruled out during the examination. She has been diagnosed with prediabetes, with an A1c of 5.7%. She is advised to avoid sugary foods to manage her blood glucose levels. Social History - Family status: Not currently in a relationship, no plans for more children - Employment: Works with computers, experiences eye strain [facility] Medical History (Updated 01/30/25 @ 11:18 by Fannie Olson PA-C) Anemia Orthostatic hypotension Menorrhagia Family history of breast cancer Sinus infection Prediabetes Annual physical examination for person with mental illness completed Cervical cancer screening Nexplanon removal Gestational diabetes Anxiety History of gestational diabetes Multigravida in second trimester Anemia affecting Surgical History History of delivery affecting Family History Maternal Grandmother No problems noted. Mother Diabetes Social History Household Members: Significant Other and Children Housing: Apartment Are you a primary healthcare customer service to a significant other at home: No Do you presently have visiting nurse or other home services: No Alcohol intake: current Alcohol intake frequency: does not drink Patient Tobacco Use Status: Never used Tobacco Second Hand Smoke Exposure: No Special sonny needs: No Agree to transfusion: Yes service: No Current occupational status: employed Sexual orientation: Straight/Heterosexual Gender identity: Female Cognitive needs: No Hearing needs: No Vision needs: Yes (rx glasses) Female Reproductive History Menstrual Age of Menarche: 5 Questionnaire PHQ-9 Over the last 2 weeks, how often have you been bothered by any of the following problems? 1. Little interest or pleasure in doing things: not at all 2. Feeling down, depressed, or hopeless: not at all 3. Trouble falling or staying asleep, or sleeping too much: not at all 4. Feeling tired or having little energy: not at all 5. Poor appetite or overeating: not at all 6. Feeling bad about yourself - or that you are a failure or have let yourself or your family down: not at all 7. Trouble concentrating on things, such as reading the newspaper or watching television: not at all 8. Moving or speaking so slowly that other people could have noticed. Or the opposite - being so fidgety or restless that you have been moving around a lot more than usual: not at all 9. Thoughts that you would be better off or of hurting yourself in some way: not at all Total score: 0 Depression Screening Interpretation: Negative Depression Screening Done: Yes 65750 - PHQ-9 Billing: Yes Source: Developed by Drs. Damir Barrera, Josette Lora, Pancho Lacey and colleagues, with an educational carolina from [employer]. Thrive Questionnaire Date Thrive assessed: 01/30/25 I am a: Patient What is your living situation today?: I have a steady place to live Within the past 12 months, did the food you bought not last and you didn't have the money to get more?: Never true Within the past 12 months, did you worry whether your food would run out before you got money to buy more?: Never true Do you have trouble paying for medicines?: No Do you have trouble getting transportation to medical appointments?: No Do you have trouble paying your heating and electricity bill?: No Do you have trouble taking care of your child, family member or friend?: No Do you have trouble with day-to-day activities such as bathing, preparing meals, shopping, managing finances, etc.?: No Are you currently unemployed and looking for a job?: No Are you interested in more education?: No Please select the resources that you would like help with: None THRIVE Score: 0 AUDIT C Alcohol Use Questionnaire (AUDIT-C) 1. How often do you have a drink containing alcohol?: Never 3. How often do you have six or more drinks on one occasion?: Never Total Score: 0 Score Reviewed/Action Taken: No ALLISON-7 AMB Questionnaire ALLISON-7 Date ALLISON - 7 assessed: 01/30/25 Feeling nervous, anxious, or on edge: 0 = Not at all Not being able to stop or control worryin = Not at all Worrying too much about different things: 0 = Not at all Trouble relaxin = Not at all Being so restless that it is hard to sit still: 0 = Not at all Becoming easily annoyed or irritable: 0 = Not at all Feeling afraid as if something awful might happen: 0 = Not at all Total ALLISON-7 score (0-4 normal; 5-9 mild; 10-14 moderate; 15-21 severe): 0 Source: Developed by Drs. Damir Barrera, Josette Lora, Pancho Lacey and colleagues, with an educational carolina from [employer]. ALLISON-7 Assessment Billing ALLISON-7 Assessment Tool: ALLISON-7 Assessment 49766 Review of Systems Const Details: - General: Reports fatigue and weakness - Cardiovascular: Denies chest pain, palpitations - Respiratory: Denies dyspnea, cough - Gastrointestinal: Denies black or bloody stools - Neurological: Reports dizziness when standing quickly - Endocrine: Denies thyroid disease - Hematologic: Reports heavy menstrual bleeding with clots All systems reviewed & are unremarkable except as noted in HPI and below Physical exam (Primary Care) Vital Signs: Last Vital Signs Temp 97.9 F 01/30/25 10:37 Pulse 78 01/30/25 10:37 Resp 14 01/30/25 10:37 BP 93/55 L 01/30/25 10:37 Pulse Ox 99 01/30/25 10:37 Oxygen Delivery Method Room Air 01/30/25 10:37 Care Plan Goal for BP management: <140/90 at Goal BMI result Body Mass Index 33.0 BMI Assessment/Plan discussion: High BMI High, discussed plan: lifestyle, weight reduction, dietary, physical activity, alcohol moderation and other Tobacco/Smoking Status: Tobacco use Status Tobacco use date assessed 01/30/25 01/30/25 10:41 Patient Tobacco Use Status Never used Tobacco 01/30/25 10:41 PHQ-9: PHQ-9 Score PHQ-9: Total score 0 01/30/25 10:50 Depression Screening Interpretation: Negative Thrive Assessment: Date of Thrive Assessment Date Thrive assessed 01/30/25 01/30/25 10:41 Const Other: Appearance: Alert. Oriented X3. No acute distress. Head: Normal external exam. Normocephalic. Atraumatic. Eyes: Pupils are equal, round, and reactive to light. Extraocular movements intact. Conjunctiva and sclera normal. Eyelids normal. Ears: External auditory canal normal. Tympanic membranes normal. Throat: Pharynx normal. Uvula midline. Moist mucous membranes. Neck: Normal inspection. Neck supple. Full range of motion. No adenopathy. Thyroid Normal. No meningeal signs. No neck mass noted. Cardiovascular: Normal heart rate and rhythm. Heart sound normal. No murmurs noted. Pulses normal throughout. Respiratory: No respiratory distress. Painless inspiration. Breath sounds normal. No wheezes/rales/rhonchi noted. Chest nontender. No accessory muscle usage noted or decreased air movement noted. Abdomen: Soft and nontender. Bowel sounds normal in all 4 quadrants. No distention noted. No organomegaly noted. No visible injury noted. Back: No costovertebral angle tenderness. Full range of motion noted. Skin: Skin warm and dry. Normal skin color. Normal skin turgor. No rashes/lesions/lacerations noted. Extremities: No lower extremity edema. Extremities exhibit normal range of motion. Extremities nontender. Neuro: Oriented X 3. No motor deficit. No sensory deficit. Reflexes normal. Results Reviewed Results Reviewed: - Labs: Hemoglobin 9.3 g/dL in 2020 indicating anemia - Labs: A1c 5.7% indicating prediabetes Coding Level of Care Code New Pt Level 4 (73650) New Pt Prev Care 18-39yr(93409 Diagnoses Annual physical examination for person with mental illness completed Z00.00; F99 Prediabetes R73.03 Sinus infection J32.9 Family history of breast cancer Z80.3 Menorrhagia N92.0 Orthostatic hypotension I95.1 Anemia D64.9 Additional Codes PHQ-9 - 19635 - PHQ-9 Billing: Yes ([id number]) ALLISON-7 Assessment Billing - ALLISON-7 Assessment Tool: LALISON-7 Assessment 62835 ([id number]) Assessment & Plan Assessment & Plan (1) Annual physical examination for person with mental illness completed: Code(s): Z00.00 - Encounter for general adult medical examination without abnormal findings; F99 - Mental disorder, not otherwise specified Category: Medical (2) Prediabetes: Code(s): R73.03 - Prediabetes Category: Medical Plan: The patient has been diagnosed with prediabetes, with an A1c of 5.7%. She is advised to avoid sugary foods to manage her blood glucose levels. Regular monitoring of blood glucose levels is recommended. (3) Sinus infection: Code(s): J32.9 - Chronic sinusitis, unspecified Category: Medical Plan: The patient reports symptoms consistent with a sinus infection, particularly during weather changes. Antibiotics and a nasal spray have been prescribed to manage the infection. (4) Family history of breast cancer: Code(s): Z80.3 - Family history of malignant neoplasm of breast Category: Medical Plan: The patient has a significant family history of breast cancer, with her grandmother having from it and her mother currently undergoing treatment to prevent progression of fibroids to cancer. Regular screenings are recommended due to this family history. (5) Menorrhagia: Code(s): N92.0 - Excessive and frequent menstruation with regular cycle Category: Medical Plan: The patient reports heavy menstrual bleeding lasting up to two weeks with associated clotting, which she attributes to the Nexplanon implant. She desires removal of the implant to alleviate these symptoms. (6) Orthostatic hypotension: Code(s): I95.1 - Orthostatic hypotension Category: Medical Plan: The patient experiences dizziness when standing quickly, which may be related to low blood pressure. Orthostatic hypotension was ruled out during the examination. (7) Anemia: Code(s): D64.9 - Anemia, unspecified Category: Medical Plan: The patient has a history of anemia with a hemoglobin level of 9.3 g/dL noted in 2020. She experiences fatigue and weakness and does not currently take iron supplements due to gastrointestinal side effects. A comprehensive blood workup including CBC, iron profile, and ferritin levels is planned to assess the current status of anemia. Plan Plan Patient was informed and verbally consented to the use of an ambient scribe for clinic note documentation during this visit. 1. Anemia The patient has a history of anemia with a hemoglobin level of 9.3 g/dL noted in 2020. She experiences fatigue and weakness and does not currently take iron supplements due to gastrointestinal side effects. A comprehensive blood workup including CBC, iron profile, and ferritin levels is planned to assess the current status of anemia. 2. Prediabetes The patient has been diagnosed with prediabetes, with an A1c of 5.7%. She is advised to avoid sugary foods to manage her blood glucose levels. Regular monitoring of blood glucose levels is recommended. 3. Sinus Infection The patient reports symptoms consistent with a sinus infection, particularly during weather changes. Antibiotics and a nasal spray have been prescribed to manage the infection. 4. Family History Of Breast Cancer The patient has a significant family history of breast cancer, with her grandmother having from it and her mother currently undergoing treatment to prevent progression of fibroids to cancer. Regular screenings are recommended due to this family history. 5. Menorrhagia The patient reports heavy menstrual bleeding lasting up to two weeks with associated clotting, which she attributes to the Nexplanon implant. She desires removal of the implant to alleviate these symptoms. 6. Orthostatic Hypotension The patient experiences dizziness when standing quickly, which may be related to low blood pressure. Orthostatic hypotension was ruled out during the examination. During the visit, we discussed the patient's desire to remove the Nexplanon implant due to menorrhagia and a desire to discontinue control. We reviewed her anemia history and planned a comprehensive blood workup to assess her current status. The patient was informed about her prediabetes diagnosis and advised to avoid sugary foods. We also discussed her family history of breast cancer and the importance of regular screenings. Antibiotics and a nasal spray were prescribed for her sinus infection. Orders: Orders C Reactive Protein Today Z00.00 - Encounter for general adult medical examination without abnormal findings Comprehensive [place]. Panel Fast Today Z00.00 - Encounter for general adult medical examination without abnormal findings IRON PROFILE Today D64.9 - Anemia, unspecified Liver Panel Today Z00.00 - Encounter for general adult medical examination without abnormal findings Magnesium Today Z00.00 - Encounter for general adult medical examination without abnormal findings Vitamin B12 and Folate Today Z00.00 - Encounter for general adult medical examination without abnormal findings MM screening mammo BI Today Z12.31 - Encounter for screening mammogram for malignant neoplasm of breast Complete Blood Count Auto Diff Today Z00.00 - Encounter for general adult medical examination without abnormal findings Ferritin Today D64.9 - Anemia, unspecified TSH reflex Free T4 Today Z00.00 - Encounter for general adult medical examination without abnormal findings Lipid Panel Today Z00.00 - Encounter for general adult medical examination without abnormal findings Vitamin D 25-OH Total Today Z00.00 - Encounter for general adult medical examination without abnormal findings AMB Hemoglobin A1c Today Z13.9 - Encounter for screening, unspecified 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 - Follow up with blood work as ordered, fasting for 10-12 hours prior. - Avoid sugary foods to manage blood glucose levels. - Take prescribed antibiotics and nasal spray as directed. - Schedule regular screenings due to family history of breast cancer.
[2025-01-30 10:37] VITALS: BP 93/55; PULSE 78; RESP 14; TEMP 36.6; O2SAT 99; BMI 33.0
[2025-01-30 11:12] VITALS: BP 108/63; BP 122/71
== END 2025-01-30 11:14 | disposition home or self-care (01) ==
PROVIDERS: PCP Physician Assistant Medical; Visit Provider Physician Assistant Medical
DX: Z00.00 Encounter for general adult medical examination without abnormal findings (principal); F99 Mental disorder, not otherwise specified; R73.03 Prediabetes; J32.9 Chronic sinusitis, unspecified; Z80.3 Family history of malignant neoplasm of breast; N92.0 Excessive and frequent menstruation with regular cycle; I95.1 Orthostatic hypotension; D64.9 Anemia, unspecified

== ENCOUNTER → 2025-01-30 10:21 | Outpatient (BNVA) | payer OTHER, SELFPAY | PROVIDERS: PCP Physician Assistant Medical; Visit Provider Physician Assistant Medical | DX: Z00.00 Encounter for general adult medical examination without abnormal findings (principal); N92.0 Excessive and frequent menstruation with regular cycle; R42 Dizziness and giddiness; R73.03 Prediabetes; F99 Mental disorder, not otherwise specified; J32.9 Chronic sinusitis, unspecified; D64.9 Anemia, unspecified; Z80.3 Family history of malignant neoplasm of breast | CPT/HCPCS: 83036; 96127; 99202; 99385 ==